=== PATIENT | male | born 1990 | race Caucasian/White ===

== ENCOUNTER 2021-01-11 07:25 | Emergency (ER) | payer OTHER ==
[~2021-01-11] VITALS: Ht 188 cm; Wt 88.6 kg
[2021-01-11] MEDS ORDERED: diazePAM 5MG TABLET PO ONE (08:40)
[2021-01-11] MEDS ORDERED: KETOROLAC 30 MG/ML 1ML VIAL IM ONE (08:40)
[2021-01-11] MEDS ORDERED: VALI5TAB PO (10:07)
[2021-01-11] MEDS ORDERED: LIDO5DIS41 TD (10:07)
[2021-01-11] MEDS ORDERED: KETO10TAB PO (10:07)
[2021-01-11 10:14] VITALS: BP 127/76
== END 2021-01-11 10:18 | disposition home or self-care (01) ==
LOC: M ED 07:25 → EDBD 07:25 → M ED 10:18
DX: M62.830 Muscle spasm of back (principal); F17.210 Nicotine dependence, cigarettes, uncomplicated
CPT/HCPCS: 96372; 99284; J1885